=== PATIENT | female | born 1950 | race Caucasian/White ===

== ENCOUNTER → 2021-03-17 | Outpatient (CLI) | payer MEDICARE ==
[~2021-03-17] MED LIST: ACET-683 PO; ASPI81TA78 PO; DOCU100T8 PO; ISOVUE-300 61% 50ML VIAL As Ordered ONE; LIDOCAINE 1% MDV 20ML VIAL As Ordered ONE; METO50TA7 PO; NEXI40CA PO; SIMV20TA22 PO; TRIAMCINOLONE ACETONIDE SUSP 40 MG/ML VIAL (J3301) As Ordered ONE; TYLE325T5 PO; VICO5TAB17 PO; VITA200016 PO; ZOFR4TAB16 PO; magnesium OR; oscal OR
--- NOTE | 2021-03-18 07:54 | REP ---
INDICATION: PAIN RT HIP. COMPARISON: None. TECHNIQUE: The procedure was performed under the direct supervision of Dr. Yo. The benefits and risks including but not limited to pain infection and bleeding and anaphylaxis were explained to the patient and informed consent was obtained. The right femoral neck was localized using fluoroscopic guidance. The skin was prepped and draped in a sterile fashion. 1% lidocaine was used as a local anesthetic. Using fluoroscopic guidance, and last image hold technology, a 22-gauge spinal needle was inserted and advanced to the femoral neck. 0.5 ml of Isovue-300 was injected to verify placement. Six ml of a solution containing 5 ml of 1% Xylocaine and 1 mL of Kenalog 40 mg was injected. The needle was then removed. The patient tolerated the procedure well and there were no immediate complications. Less than 6 seconds of fluoro time was utilized for this procedure. FINDINGS: None IMPRESSION: Fluoro guidance for right hip injection. <Electronically signed by Karthikeyan Brasher > 03/17/21 [id number] <Electronically signed by Munir Yo > 03/18/21 [id number]
== END ==
LOC: M RADPRO 11:58
PROVIDERS: ATTEND Orthopaedic Surgery
DX: M25.551 Pain in right hip (principal)
CPT/HCPCS: 20610; 77002; J3301; Q9967